=== PATIENT | male | born 1960 | race Caucasian/White ===

== ENCOUNTER 2019-03-29 10:44 | Emergency (ER) | payer BC ==
[2019-03-29] MEDS ORDERED: Bupivacaine 0.5% 10 ML SDV INJECT ONE (10:49)
[2019-03-29] MEDS ORDERED: Diphtheria,Pertussis(Acell),Tetanus Vaccine 0.5 ML Syringe IM ONE (11:11)
--- NOTE | 2019-03-29 11:46 | EDM.PDOC ---
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 Review of systems: As per history of present illness and below otherwise all systems reviewed and negative. Past medical history: As per history of present illness and as reviewed below otherwise noncontributory. Surgical history: As per history of present illness and as reviewed below otherwise noncontributory. Social history: No reported history of drug or alcohol abuse. Family history: As per history of present illness and as reviewed below otherwise noncontributory. Physical exam: General: Well developed, well nourished in NAD HEENT: Atraumatic, normocephalic, pupils reactive, negative for conjunctival pallor or scleral icterus, mucous membranes moist, throat clear, neck supple, nontender, trachea midline. Lungs: Clear to auscultation, breath sounds equal bilaterally, chest nontender. Heart: S1S2, regular, negative for clicks, rubs, or JVD. Abdomen: NABS, Soft, nondistended, nontender. Negative for masses or hepatosplenomegaly. Negative for costovertebral tenderness. Pelvis: Stable nontender. Genitourinary: Deferred. Rectal: Deferred. Extremities: 5 cm laceration to the thenar eminence left hand, negative for cords or calf pain. Neurovascular unremarkable. Neuro: Awake, alert, oriented. Cranial nerves II through XII unremarkable. Cerebellum unremarkable. Motor and sensory unremarkable throughout. Exam nonfocal. Skin:warm and dry Diagnostics: None Therapeutics: Tetanus ED Course: Stable Impression: Left hand laceration Prescriptions: None Plan: Take meds as directed, follow up with your primary care physician, return to ER if symptoms worsen or change. Definitive disposition and diagnosis as appropriate pending reevaluation and review of above. Left hand Pain Score (Numeric/FACES): 1 - Related Data Allergies Allergy/AdvReac Type Severity Reaction Status Date / Time No Known Allergies Allergy Verified 03/29/19 10:55 Home Meds: Home Meds Aspirin 81 mg PO DAILY 03/29/19 [History] Carvedilol [Coreg] 12.5 mg PO BID 03/29/19 [History] Hydrochlorothiazide [Microzide] 12.5 mg PO DAILY 03/29/19 [History] Omeprazole Magnesium [Prilosec Otc] 1 tab PO DAILY 03/29/19 [History] Pravastatin Sodium [Pravachol] 80 mg PO DAILY 03/29/19 [History] Ramipril [Altace] 10 mg PO DAILY 03/29/19 [History] Past Medical History Cardiovascular History: Reports: Bypass, Hypertension Other Cardiovascular History: Patient states he has heart disease Other Genitourinary History: Patient states he has "prostate issues." - Infectious Disease History Infectious Disease History: Reports: Chicken Pox Social & Family History - Family History Family Medical History: Noncontributory - Tobacco Use Smoking Status *Q: Never Smoker - Caffeine Use Caffeine Use: Reports: None - Recreational Drug Use Recreational Drug Use: No ED ROS GENERAL - Review of Systems Review Of Systems: See Below ED EXAM, SKIN/RASH Exam: See Below ED SKIN PROCEDURES - Laceration/Wound Repair Hand Appearance: Superficial, Subcutaneous Anesthetic Type: Local Local Anesthesia - Lidocaine (Xylocaine): 1% Plain Local Anesthesia - Bupivicaine (Marcaine): 0.5% Plain Local Anesthetic Volume: 3cc Skin Prep: Chlorhexidine (Hibiciens) Lac/Wound length In cm: 5 Drain Placement: No Sterile Dressing Applied: Nurse Tetanus Status Addressed: Yes Complications: No Course - Vital Signs Last Recorded V/S: Last Vital Signs Temp 98.1 F 03/29/19 11:01 Pulse 62 03/29/19 11:01 Resp 15 03/29/19 11:01 BP 118/82 03/29/19 11:01 Pulse Ox 98 03/29/19 11:01 - Orders/Labs/Meds Orders: Active Orders 24 hr Category Date Time Status Vaccines to be Administered [RC] PER UNIT ROUTINE Care 03/29/19 11:11 Active Meds: Medications Discontinued Medications Generic Name Dose Route Start Last Admin Trade Name Freq PRN Reason Stop Dose Admin Bupivacaine HCl 10 ml 03/29/19 10:49 Sensorcaine-Mpf 0.5% INJECT 03/29/19 10:50 ONETIME ONE Diphtheria/Tetanus/Acell Pertussis 0.5 ml 03/29/19 11:11 Adacel IM 03/29/19 11:12 .ONCE ONE Lidocaine HCl 5 ml 03/29/19 10:49 Xylocaine-Mpf 1% INJECT 03/29/19 10:50 ONETIME ONE Departure - Departure Time of Disposition: 11:44 Disposition: Home, Self-Care 01 Condition: Good Clinical Impression: Hand laceration Qualifiers: Encounter type: initial encounter Foreign body presence: without foreign body Laterality: left Qualified Code(s): S61.412A - Laceration without foreign body of left hand, initial encounter - Discharge Information *PRESCRIPTION DRUG MONITORING PROGRAM REVIEWED*: Not Applicable *COPY OF PRESCRIPTION DRUG MONITORING REPORT IN PATIENT KERRI: Not Applicable Referrals: PCP,Unknown [Primary Care Provider] - Additional Instructions: The following information is given to patients seen in the emergency department who are being discharged to home. This information is to outline your options for follow-up care. We provide all patients seen in our emergency department with a follow-up referral. The need for follow-up, as well as the timing and circumstances, are variable depending upon the specifics of your emergency department visit. If you don't have a primary care physician on staff, we will provide you with a referral. We always advise you to contact your personal physician following an emergency department visit to inform them of the circumstance of the visit and for follow-up with them and/or the need for any referrals to a consulting specialist. The emergency department will also refer you to a specialist when appropriate. This referral assures that you have the opportunity for follow-up care with a specialist. All of these measure are taken in an effort to provide you with optimal care, which includes your follow-up. Under all circumstances we always encourage you to contact your private physician who remains a resource for coordinating your care. When calling for follow-up care, please make the office aware that this follow-up is from your recent emergency room visit. If for any reason you are refused follow-up, please contact the [facility] Emergency Department at and asked to speak to the emergency department charge nurse. Take meds as directed, follow up with your primary care physician, return to ER if symptoms worsen or change. [facility] [address] [place] [id number] - My Orders Last 24 Hours: My Active Orders 03/29/19 11:11 Vaccines to be Administered [RC] PER UNIT ROUTINE - Assessment/Plan Last 24 Hours: My Active Orders 03/29/19 11:11 Vaccines to be Administered [RC] PER UNIT ROUTINE
== END 2019-03-29 12:14 | disposition home or self-care (01) ==
LOC: MW.ED 10:44
DX: S61.412A Laceration without foreign body of left hand, initial encounter (principal); I10 Essential (primary) hypertension; Z79.82 Long term (current) use of aspirin; Z79.899 Other long term (current) drug therapy; Z23 Encounter for immunization; W26.8XXA Contact with other sharp object(s), not elsewhere classified, initial encounter
CPT/HCPCS: 90471; 90715; 99282; J2001; J3490

== ENCOUNTER 2019-06-04 22:09 | Observation (INO) | payer BC ==
[2019-06-04] MEDS ORDERED: Sodium Chloride 0.9% 1,000 ML IV ONE (22:11)
[2019-06-04] MEDS ORDERED: Ondansetron 4 MG/2 ML SDV IVPUSH ONE (22:11)
--- NOTE | 2019-06-04 22:12 | EDM.PDOC ---
ED HPI GENERAL MEDICAL PROBLEM - General Chief Complaint: Abdominal Pain Stated Complaint: SEVERE ABDOMINAL PAIN Time Seen by Provider: 06/04/19 22:12 Source of Information: Reports: Patient - History of Present Illness INITIAL COMMENTS - FREE TEXT/NARRATIVE: HISTORY AND PHYSICAL: History of present illness: [Shunt presents with right lower quadrant pain for 12-24 hours increasing in severity] Review of systems: As per history of present illness and below otherwise all systems reviewed and negative. Past medical history: As per history of present illness and as reviewed below otherwise noncontributory. Surgical history: As per history of present illness and as reviewed below otherwise noncontributory. Social history: No reported history of drug or alcohol abuse. Family history: As per history of present illness and as reviewed below otherwise noncontributory. Physical exam: HEENT: Atraumatic, normocephalic, pupils reactive, negative for conjunctival pallor or scleral icterus, mucous membranes moist, throat clear, neck supple, nontender, trachea midline. Lungs: Clear to auscultation, breath sounds equal bilaterally, chest nontender. Heart: S1S2, regular, negative for clicks, rubs, or JVD. Abdomen: Soft, guarding with rebound right lower quadrant. Negative for masses or hepatosplenomegaly. Negative for costovertebral tenderness. Pelvis: Stable nontender. Genitourinary: Deferred. Rectal: Deferred. Extremities: Atraumatic, negative for cords or calf pain. Neurovascular unremarkable. Neuro: Awake, alert, oriented. Cranial nerves II through XII unremarkable. Cerebellum unremarkable. Motor and sensory unremarkable throughout. Exam nonfocal. Diagnostics: [EBC CMP UA troponin EKG CT abdomen pelvis with and without contrast ] Therapeutics: [Normal saline Zofran Morphine Rocephin ] Impression: [ acute appendicitis ] Definitive disposition and diagnosis as appropriate pending reevaluation and review of above. Abdomen Pain Score (Numeric/FACES): 5 - Related Data Allergies Allergy/AdvReac Type Severity Reaction Status Date / Time No Known Allergies Allergy Verified 06/04/19 22:17 Home Meds: Home Meds Aspirin 81 mg PO DAILY 03/29/19 [History] Hydrochlorothiazide [Microzide] 12.5 mg PO DAILY 03/29/19 [History] Ramipril [Altace] 10 mg PO DAILY 03/29/19 [History] carvediloL [Coreg] 12.5 mg PO BID 03/29/19 [History] Finasteride 1 mg PO DAILY 06/04/19 [History] Omeprazole Magnesium [Prilosec] 10 mg PO DAILY 06/04/19 [History] Pravastatin [Pravachol] 80 mg PO DAILY 06/04/19 [History] Past Medical History Cardiovascular History: Reports: Bypass, Hypertension Other Cardiovascular History: Patient states he has heart disease Other Genitourinary History: Patient states he has "prostate issues." - Infectious Disease History Infectious Disease History: Reports: Chicken Pox Social & Family History - Family History Family Medical History: Noncontributory - Caffeine Use Caffeine Use: Reports: None ED ROS GENERAL - Review of Systems Review Of Systems: See Below ED EXAM, GENERAL - Physical Exam Exam: See Below Course - Vital Signs Last Recorded V/S: Last Vital Signs Temp 97.8 F 06/05/19 00:03 Pulse 70 06/05/19 00:03 Resp 18 06/05/19 00:03 BP 109/61 06/05/19 00:03 Pulse Ox 95 06/05/19 00:03 - Orders/Labs/Meds Orders: Active Orders 24 hr Category Date Time Status EKG Documentation Completion [RC] STAT Care 06/04/19 22:12 Active Labs: Laboratory Tests 06/04/19 06/04/19 06/04/19 Range/Units 22:20 22:20 22:25 WBC 17.15 H (4.0-11.0) K/uL RBC 4.67 (4.50-5.90) M/uL Hgb 15.5 (13.0-17.0) g/dL Hct 44.3 (38.0-50.0) % MCV 94.9 (80.0-98.0) fL MCH 33.2 H (27.0-32.0) pg MCHC 35.0 (31.0-37.0) g/dL RDW Std Deviation 45.1 (28.0-62.0) fl RDW Coeff of Ivette 13 (11.0-15.0) % Plt Count 158 (150-400) K/uL MPV 10.00 (7.40-12.00) fL Neut % (Auto) 78.0 (48.0-80.0) % Lymph % (Auto) 9.4 L (16.0-40.0) % [place] % (Auto) 11.7 (0.0-15.0) % Eos % (Auto) 0.8 (0.0-7.0) % Baso % (Auto) 0.1 (0.0-1.5) % Neut # (Auto) 13.4 H (1.4-5.7) K/uL Lymph # (Auto) 1.6 (0.6-2.4) K/uL [place] # (Auto) 2.0 H (0.0-0.8) K/uL Eos # (Auto) 0.1 (0.0-0.7) K/uL Baso # (Auto) 0.0 (0.0-0.1) K/uL Nucleated RBC % 0.0 /100WBC Nucleated RBCs # 0 K/uL Sodium 137 (136-148) mmol/L Potassium 3.5 (3.5-5.1) mmol/L Chloride 101 (98-107) mmol/L Carbon Dioxide 28.0 (21.0-32.0) mmol/L BUN 9 (7.0-18.0) mg/dL Creatinine 1.1 (0.8-1.3) mg/dL Est Cr Clr Drug Dosing 66.77 mL/min Estimated GFR (MDRD) > 60.0 ml/min Glucose 116 H (74-106) mg/dL Calcium 8.8 (8.5-10.1) mg/dL Total Bilirubin 1.4 H (0.2-1.0) mg/dL AST 20 (15-37) IU/L ALT 42 (14-63) IU/L Alkaline Phosphatase 63 (46-116) U/L Troponin I < 0.050 (0.000-0.056) ng/mL Total Protein 7.5 (6.4-8.2) g/dL Albumin 4.0 (3.4-5.0) g/dL Globulin 3.5 (2.6-4.0) g/dL Albumin/Globulin Ratio 1.1 (0.9-1.6) Lipase 101 (73-393) U/L Urine Color YELLOW Urine Appearance CLEAR Urine pH 7.0 (5.0-8.0) Ur Specific [place] 1.010 (1.001-1.035) Urine Protein NEGATIVE (NEGATIVE) mg/dL Urine Glucose (UA) NEGATIVE (NEGATIVE) mg/dL Urine Ketones NEGATIVE (NEGATIVE) mg/dL Urine Occult Blood TRACE-INTACT H (NEGATIVE) Urine Nitrite NEGATIVE (NEGATIVE) Urine Bilirubin NEGATIVE (NEGATIVE) Urine Urobilinogen 1.0 (<2.0) EU/dL Ur Leukocyte Esterase NEGATIVE (NEGATIVE) Urine RBC 0-2 (0-2/HPF) Urine WBC 0-1 (0-5/HPF) Ur Epithelial Cells RARE (NONE-FEW) Urine Bacteria RARE (NEGATIVE) Meds: Medications Discontinued Medications Generic Name Dose Route Start Last Admin Trade Name Freq PRN Reason Stop Dose Admin Sodium Chloride 1,000 mls @ 999 mls/hr 06/04/19 22:11 06/04/19 22:31 Normal Saline IV 06/04/19 23:11 999 mls/hr STAT ONE Administration Iopamidol 100 ml 06/04/19 23:16 06/04/19 23:17 Isovue Multipack-370 (76%) IVPUSH 06/04/19 23:17 100 ml ONETIME STA Administration Morphine Sulfate 2 mg 06/04/19 22:41 06/04/19 22:49 Morphine IVPUSH 06/04/19 22:42 2 mg ONETIME ONE Administration Ondansetron HCl 8 mg 06/04/19 22:11 06/04/19 22:31 Zofran IVPUSH 06/04/19 22:12 8 mg ONETIME ONE Administration Departure - Departure Time of Disposition: 00:11 Disposition: Refer to Observation Condition: Poor Clinical Impression: Appendicitis - Discharge Information Forms: ED Department Discharge - My Orders Last 24 Hours: My Active Orders 06/04/19 22:12 EKG Documentation Completion [RC] STAT - Assessment/Plan Last 24 Hours: My Active Orders 06/04/19 22:12 EKG Documentation Completion [RC] STAT
[2019-06-04] MEDS ORDERED: Morphine 2 MG/ML Syringe IVPUSH ONE (22:41)
[2019-06-04 22:56] LABS: BLOOD UREA NITROGEN,BUN 9 mg/dL (7.0-18.0); CHLORIDE,CL 101 mmol/L (98-107); GLUCOSE RANDOM 116 mg/dL (74-106); LIPASE 101 U/L (73-393); POTASSIUM,K 3.5 mmol/L (3.5-5.1); SODIUM,NA 137 mmol/L (136-148)
[2019-06-04] MEDS ORDERED: Iopamidol 755 MG/ML 500 ML Multipack Bottle IVPUSH STA (23:16)
--- NOTE | 2019-06-04 23:52 | CT ---
INDICATION: Right lower quadrant pain TECHNIQUE: CT abdomen and pelvis acquired with IV contrast. 100 cc Isovue 370 COMPARISON: None FINDINGS: Lower chest: Unremarkable. Liver: Unremarkable. Spleen: Unremarkable. Pancreas: Unremarkable. Gallbladder and bile ducts: Unremarkable. Kidneys: Unremarkable. Adrenal glands: Unremarkable. GI tract: Unremarkable. The appendix is dilated up to 1.7 centimeters, thick-walled and contains multiple appendicoliths. Significant adjacent inflammatory stranding. Findings consistent with acute appendicitis. Vascular structures: Unremarkable. Lymph nodes: Unremarkable. Miscellaneous: Unremarkable. No free air or significant free fluid. Pelvic Organs: Unremarkable. Bones: Unremarkable for age. IMPRESSION: Dilated and thickened appendix with adjacent inflammatory stranding and multiple appendicoliths consistent with acute appendicitis. Dictated by Law Patterson MD @ 06/04/2019 11:51:12 PM Please note that all CT scans at this facility use dose modulation, iterative reconstruction, and/or weight-based dosing when appropriate to reduce radiation dose to as low as reasonably achievable. Dictated by: Law Patterson MD @ 06/04/2019 23:51:18 (Electronically Signed)
[2019-06-05] MEDS ORDERED: cefTRIAXone 1 GM in Premix Bag 1 BAG IV ONE (00:12)
[2019-06-05] MEDS ORDERED: Lactated Ringers 1,000 ML IV SCH (01:00)
--- NOTE | 2019-06-05 01:22 | PCM.SN ---
- Free Text/Narrative Note: pt seen, chart reviewed, acute appendicitis of pain >48 hrs, and size 17 mm; proceed to surgery; rb dw pt re bleeding/infection/damage to nearby organs/po course/possible drain placement; pt concurred and proceed.; admission h/p [id number]
[2019-06-05] MEDS ORDERED: Rocuronium 100 MG/10 ML Syringe ONE (03:04)
[2019-06-05] MEDS ORDERED: Midazolam 1 MG/ML 2 ML SDV ONE (03:04)
[2019-06-05] MEDS ORDERED: Etomidate 2 MG/ML 20 ML SDV IVPUSH ONE (03:04)
[2019-06-05] MEDS ORDERED: Ondansetron 4 MG/2 ML SDV ONE (03:04)
[2019-06-05] MEDS ORDERED: fentaNYL 250 MCG/5 ML SDV ONE (03:04)
[2019-06-05] MEDS ORDERED: Lidocaine 2% 5 ML SDV ONE (03:04)
[2019-06-05] MEDS ORDERED: Bupivacaine 25%/EPINEPHrine/PF 30 ML ONE (03:30)
--- NOTE | 2019-06-05 03:59 | CONS ---
DATE OF CONSULTATION: 06/05/2019 DATE OF : 1960 PRIMARY CARE PHYSICIAN: CARRIE WOMACK MD Consult from Dr. Gray in the emergency room. REASON FOR CONSULTATION: Acute appendicitis. HISTORY OF PRESENT ILLNESS: The patient is 58 years old gentleman complaining of a 48-hour history of acute onset of right lower quadrant pain. Pain initially from the periumbilical, now migrated to the right lower quadrant and pain is enough to drive him to the emergency room where he got a CAT scan that shows a dilated appendix about 17 mm, no perforation yet. Thickened wall, stranding of fat consistent with acute appendicitis. Surgery was called. The patient remarked that he had something to eat or drink around 6 hours ago. ALLERGIES: Please refer to nursing for details. MEDICATION: Please refer to nursing for details. 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 The patient also recently seen Cardiology, got a workup. Stress test was negative and perfusion test shows ejection fraction of 35% with some area of constant hypokinetic consistent with old infarct. SURGERIES: CABG in the past and virgin abdomen. SOCIAL HISTORY: The patient denied tobacco and alcohol abuse. FAMILY HISTORY: Noncontributory. PHYSICAL EXAMINATION: GENERAL: A very pleasant gentleman, smiled to the doctor, in no acute distress. HEENT: Normocephalic and atraumatic. Sclerae anicteric. LUNGS: Clear to auscultation. HEART: Regular rate and rhythm. ABDOMEN: Soft, nondistended. No pulsating tender midline abdominal structure. Exquisite tenderness at McBurney point. No rebound tenderness. No Rovsing sign. LABORATORY DATA: White count is 17,000. CAT scan as alluded above. IMPRESSION: Acute appendicitis, probably will rupture at any time as the patient has been hurting for 48 hours. Acute appendicitis usually rupture in 72 hours and has been told and the appendix is dilated to 17 mm. At the time of calling for surgery, unfortunate is ongoing. Will be on line for the to finish . We will start the IV fluid at 125, lactated Ringer and the patient would have a dose of Rocephin and will get another dose of Mefoxin if the surgery is going to be 2 to 3 hours later. All the plan has been discussed with the patient, patient concurred to proceed as planned. As always, thank you for the kind referral. LIANS / MODL /[id number] REYES
--- NOTE | 2019-06-05 04:12 | CR ---
HISTORY: Possible CHF. COMPARISON: None available. FINDINGS: A portable erect AP view of the chest was obtained at STUDY TIME hours. The lungs are clear. No focal or diffuse infiltrates are present. The heart is top normal in size. There are sternal wires from median sternotomy. There is fullness of the retrocardiac region suggesting a moderate sized hiatal hernia. The mediastinum is otherwise normal in appearance. The osseous structures are normal in appearance for the patient`s age. IMPRESSION: No active disease seen in the chest. Probable moderate-sized hiatal hernia. Dictated by Corey Torres MD @ Jun 05 2019 4:09AM Signed by Dr. Corey Torres @ Jun 05 2019 4:10AM
[2019-06-05] MEDS ORDERED: Sodium Chloride 0.9% 20 ML ONE (04:23)
[2019-06-05] MEDS ORDERED: cefOXitin 1 GM Vial ONE (04:23)
[2019-06-05] MEDS ORDERED: ePHEDrine 50 MG/ML SDV ONE (04:27)
[2019-06-05] MEDS ORDERED: HYDROmorphone 2 MG/ML Syringe ONE (05:31)
[2019-06-05] MEDS: Ondansetron 4 MG/2 ML SDV IVPUSH PRN ×2 (05:45→15:57)
--- NOTE | 2019-06-05 05:49 | PCM.OPNOTE ---
- General Post-Op/Procedure Note Date of Surgery/Procedure: 06/05/19 Operative Procedure(s): lap appy Findings: appendicitis suppurativa; gross perf not observed, surgicell/drain inserted; [id number] Pre Op Diagnosis: acute appendicitis Post-Op Diagnosis: Same Anesthesia Technique: General ET Tube Primary Surgeon: Panda Guerra Pathology: sent Surgical Drain/Tube Type: Alex Oliva Flat Drain Complications: None Condition: Fair Free Text/Narrative:: Intake & Output 06/04/19 06/04/19 06/05/19 14:59 22:59 06:59 Intake Total 385 Output Total 0 Balance 385
[2019-06-05] MEDS ORDERED: Naloxone 0.4 MG/ML Syringe IVPUSH PRN (05:51)
[2019-06-05] MEDS ORDERED: Albuterol 0.083% 2.5 MG/3 ML Neb Soln NEB PRN (05:51)
[2019-06-05] MEDS ORDERED: Atropine 0.1 MG/ML 10 ML Syringe IVPUSH PRN ×2 (05:51)
[2019-06-05] MEDS ORDERED: EPINEPHrine 1:10,000 1 MG/10 ML Syringe IVPUSH PRN (05:51)
[2019-06-05] MEDS ORDERED: 50% Dextrose in Water 50 ML Syringe IVPUSH PRN (05:51)
[2019-06-05] MEDS ORDERED: Morphine 2 MG/ML Syringe IVPUSH PRN (05:51)
[2019-06-05] MEDS ORDERED: fentaNYL 100 MCG/2 ML SDV IVPUSH PRN (05:51)
[2019-06-05] MEDS ORDERED: Acetaminophen/oxyCODONE 325-5 MG Tab PO PRN (05:54)
[2019-06-05] MEDS ORDERED: Morphine 4 MG/ML Syringe IVPUSH PRN (05:59)
--- NOTE | 2019-06-05 06:00 | PCM.PREANE ---
Preanesthetic Assessment - Anesthesia/Transfusion/Family Hx Anesthesia History: Prior Anesthesia Without Reaction Family History of Anesthesia Reaction: No Transfusion History: No Prior Transfusion(s) - Review of Systems General: Weakness Pulmonary: No Symptoms Cardiovascular: No Symptoms Gastrointestinal: Nausea Neurological: No Symptoms Other: Reports: None - Physical Assessment NPO Status Date: 06/04/19 NPO Status Time: 22:00 Vital Signs: Last Vital Signs Temp 98.3 F 06/05/19 03:50 Pulse 67 06/05/19 03:50 Resp 17 06/05/19 03:50 BP 119/74 06/05/19 03:50 Pulse Ox 95 06/05/19 03:50 Height: 5 ft 7 in Weight: 80 kg ASA Class: 3E Mental Status: Alert & Oriented x3 Airway Class: Mallampati = 2 Dentition: Reports: Normal Dentition Thyro-Mental Finger Breadths: 2 Mouth Opening Finger Breadths: 3 ROM/Head Extension: Full Lungs: Clear to Auscultation, Normal Respiratory Effort Cardiovascular: Regular Rate, Regular Rhythm, Murmurs (Systolic) - Lab Values: Laboratory Last Values WBC 17.15 K/uL (4.0-11.0) H 06/04/19 22:20 RBC 4.67 M/uL (4.50-5.90) 06/04/19 22:20 Hgb 15.5 g/dL (13.0-17.0) 06/04/19 22:20 Hct 44.3 % (38.0-50.0) 06/04/19 22:20 MCV 94.9 fL (80.0-98.0) 06/04/19 22:20 MCH 33.2 pg (27.0-32.0) H 06/04/19 22:20 MCHC 35.0 g/dL (31.0-37.0) 06/04/19 22:20 RDW Std Deviation 45.1 fl (28.0-62.0) 06/04/19 22:20 RDW Coeff of Ivette 13 % (11.0-15.0) 06/04/19 22:20 Plt Count 158 K/uL (150-400) 06/04/19 22:20 MPV 10.00 fL (7.40-12.00) 06/04/19 22:20 Neut % (Auto) 78.0 % (48.0-80.0) 06/04/19 22:20 Lymph % (Auto) 9.4 % (16.0-40.0) L 06/04/19 22:20 [place] % (Auto) 11.7 % (0.0-15.0) 06/04/19 22:20 Eos % (Auto) 0.8 % (0.0-7.0) 06/04/19 22:20 Baso % (Auto) 0.1 % (0.0-1.5) 06/04/19 22:20 Neut # (Auto) 13.4 K/uL (1.4-5.7) H 06/04/19 22:20 Lymph # (Auto) 1.6 K/uL (0.6-2.4) 06/04/19 22:20 [place] # (Auto) 2.0 K/uL (0.0-0.8) H 06/04/19 22:20 Eos # (Auto) 0.1 K/uL (0.0-0.7) 06/04/19 22:20 Baso # (Auto) 0.0 K/uL (0.0-0.1) 06/04/19 22:20 Nucleated RBC % 0.0 /100WBC 06/04/19 22:20 Nucleated RBCs # 0 K/uL 06/04/19 22:20 Sodium 137 mmol/L (136-148) 06/04/19 22:20 Potassium 3.5 mmol/L (3.5-5.1) 06/04/19 22:20 Chloride 101 mmol/L (98-107) 06/04/19 22:20 Carbon Dioxide 28.0 mmol/L (21.0-32.0) 06/04/19 22:20 BUN 9 mg/dL (7.0-18.0) 06/04/19 22:20 Creatinine 1.1 mg/dL (0.8-1.3) 06/04/19 22:20 Est Cr Clr Drug Dosing 66.77 mL/min 06/04/19 22:20 Estimated GFR (MDRD) > 60.0 ml/min 06/04/19 22:20 Glucose 116 mg/dL (74-106) H 06/04/19 22:20 Calcium 8.8 mg/dL (8.5-10.1) 06/04/19 22:20 Total Bilirubin 1.4 mg/dL (0.2-1.0) H 06/04/19 22:20 AST 20 IU/L (15-37) 06/04/19 22:20 ALT 42 IU/L (14-63) 06/04/19 22:20 Alkaline Phosphatase 63 U/L (46-116) 06/04/19 22:20 Troponin I < 0.050 ng/mL (0.000-0.056) 06/04/19 22:20 B-Natriuretic Peptide 59 PG/ML (<100) 06/04/19 22:20 Total Protein 7.5 g/dL (6.4-8.2) 06/04/19 22:20 Albumin 4.0 g/dL (3.4-5.0) 06/04/19 22:20 Globulin 3.5 g/dL (2.6-4.0) 06/04/19 22:20 Albumin/Globulin Ratio 1.1 (0.9-1.6) 06/04/19 22:20 Lipase 101 U/L (73-393) 06/04/19 22:20 Urine Color YELLOW 06/04/19 22:25 Urine Appearance CLEAR 06/04/19 22:25 Urine pH 7.0 (5.0-8.0) 06/04/19 22:25 Ur Specific [place] 1.010 (1.001-1.035) 06/04/19 22:25 Urine Protein NEGATIVE mg/dL (NEGATIVE) 06/04/19 22:25 Urine Glucose (UA) NEGATIVE mg/dL (NEGATIVE) 06/04/19 22:25 Urine Ketones NEGATIVE mg/dL (NEGATIVE) 06/04/19 22:25 Urine Occult Blood TRACE-INTACT (NEGATIVE) H 06/04/19 22:25 Urine Nitrite NEGATIVE (NEGATIVE) 06/04/19 22:25 Urine Bilirubin NEGATIVE (NEGATIVE) 06/04/19 22:25 Urine Urobilinogen 1.0 EU/dL (<2.0) 06/04/19 22:25 Ur Leukocyte Esterase NEGATIVE (NEGATIVE) 06/04/19 22:25 Urine RBC 0-2 (0-2/HPF) 06/04/19 22:25 Urine WBC 0-1 (0-5/HPF) 06/04/19 22:25 Ur Epithelial Cells RARE (NONE-FEW) 06/04/19 22:25 Urine Bacteria RARE (NEGATIVE) 06/04/19 22:25 - Allergies Allergies/Adverse Reactions: Allergies Allergy/AdvReac Type Severity Reaction Status Date / Time No Known Allergies Allergy Verified 06/05/19 03:12 - Anesthesia Plan Free Text/Narrative:: 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 States his functional level is quiet high without limitation. Previous visits to the clinic this year show fatigue and lack of energy attributed to his CHF. Stress test earlier this year was negative for acute ischemia. Spoke with Dr Guerra and recommended hospitalist consult post-op medical management. - Acknowledgements Anesthesia Type Planned: General Anesthesia Pt an Appropriate Candidate for the Planned Anesthesia: Yes Alternatives and Risks of Anesthesia Discussed w Pt/Guardian: Yes Pt/Guardian Understands and Agrees with Anesthesia Plan: Yes PreAnesthesia Questionnaire HEENT History: Reports: None Cardiovascular History: Reports: Bypass, Cardiomyopathy, Heart Failure (EF 35-40 %, apex,base,inferior fan severe hypokinesia/akinesia 11/30 BNP-59 06/02), Hypertension Other Cardiovascular History: Patient states he has heart disease Respiratory History: Reports: None Gastrointestinal History: Reports: GERD, Hiatal Hernia (Confirmed on CXR 06/02) Genitourinary History: Reports: None Other Genitourinary History: Patient states he has "prostate issues." Musculoskeletal History: Reports: None Neurological History: Reports: None Psychiatric History: Reports: None Endocrine/Metabolic History: Reports: None Hematologic History: Reports: None Immunologic History: Reports: None Oncologic (Cancer) History: Reports: None Dermatologic History: Reports: None - Infectious Disease History Infectious Disease History: Reports: Chicken Pox - Past Surgical History Head Surgeries/Procedures: Reports: None Cardiovascular Surgical History: Reports: Coronary Artery Bypass (x5 2008) Other Cardiovascular Surgeries/Procedures: Angio 2008 without stent placement - SUBSTANCE USE Smoking Status *Q: Former Smoker Tobacco Use Within Last Twelve Months: Cigarettes Recreational Drug Use History: No - HOME MEDS Home Medications: Home Meds Aspirin 81 mg PO DAILY 03/29/19 [History] Hydrochlorothiazide [Microzide] 12.5 mg PO DAILY 03/29/19 [History] Ramipril [Altace] 10 mg PO DAILY 03/29/19 [History] carvediloL [Coreg] 12.5 mg PO BID 03/29/19 [History] Finasteride 5 mg PO DAILY 06/04/19 [History] Omeprazole Magnesium [Prilosec] 10 mg PO DAILY 06/04/19 [History] Pravastatin [Pravachol] 80 mg PO DAILY 06/04/19 [History] Multivitamin [One Daily Multivitamin] 1 tab PO DAILY 06/05/19 [History] Ubidecarenone [Ultra Coq10] 06/05/19 [History] - CURRENT (IN HOUSE) MEDS Current Meds: Current Medications Albuterol (Proventil Neb Soln) 2.5 mg NEB ONETIME PRN PRN Reason: Wheezing Atropine Sulfate (Atropine 0.1 Mg/Ml) 0.5 mg IVPUSH ASDIRECTED PRN PRN Reason: Hypo-perfusion Atropine Sulfate (Atropine 0.1 Mg/Ml) 1 mg IVPUSH ASDIRECTED PRN PRN Reason: Hypo-Perfusion Dextrose/Water (Dextrose 50% In Water) 50 ml IVPUSH ASDIRECTED PRN PRN Reason: Hypoglycemia Epinephrine HCl (Epinephrine 1:10,000) 1 mg IVPUSH ASDIRECTED PRN PRN Reason: ACLS Guidelines Fentanyl (Sublimaze) 50 - 100 mcg IVPUSH Q5M PRN PRN Reason: Pain Lactated Ringer's (Ringers, Lactated) 1,000 mls @ 125 mls/hr IV ASDIRECTED YIFAN Last Admin: 06/05/19 00:52 Dose: 125 mls/hr Naloxone HCl (Narcan) 0.1 mg IVPUSH ASDIRECTED PRN PRN Reason: Respiratory Depression Discontinued Medications Cefoxitin Sodium (Mefoxin) Confirm Administered Dose 1 gm .ROUTE .STK-MED ONE Stop: 06/05/19 04:24 Ephedrine Sulfate (Ephedrine Sulfate) Confirm Administered Dose 50 mg .ROUTE .STK-MED ONE Stop: 06/05/19 04:28 Etomidate (Amidate) Confirm Administered Dose 40 mg IVPUSH .STK-MED ONE Stop: 06/05/19 03:05 Fentanyl (Sublimaze) Confirm Administered Dose 250 mcg .ROUTE .STK-MED ONE Stop: 06/05/19 03:05 Hydromorphone HCl (Dilaudid) Confirm Administered Dose 2 mg .ROUTE .STK-MED ONE Stop: 06/05/19 05:32 Sodium Chloride (Normal Saline) 1,000 mls @ 999 mls/hr IV STAT ONE Stop: 06/04/19 23:11 Last Admin: 06/04/19 22:31 Dose: 999 mls/hr Ceftriaxone Sodium/Dextrose 1 (gm/ Premix) 50 mls @ 100 mls/hr IV ONETIME ONE Stop: 06/05/19 00:41 Last Admin: 06/05/19 00:22 Dose: 100 mls/hr Bupivacaine HCl/Epinephrine Bitart (Sensorc Mpf 0.25%-Epi 1:[id number]) Confirm Administered Dose 30 mls @ as directed .ROUTE .STK-MED ONE Stop: 06/05/19 03:31 Sodium Chloride (Normal Saline) Confirm Administered Dose 20 mls @ as directed .ROUTE .STK-MED ONE Stop: 06/05/19 04:24 Iopamidol (Isovue Multipack-370 (76%)) 100 ml IVPUSH ONETIME STA Stop: 06/04/19 23:17 Last Admin: 06/04/19 23:17 Dose: 100 ml Lidocaine (Xylocaine-Mpf 2%) Confirm Administered Dose 5 ml .ROUTE .STK-MED ONE Stop: 06/05/19 03:05 Midazolam HCl (Versed 1 Mg/Ml) Confirm Administered Dose 2 mg .ROUTE .STK-MED ONE Stop: 06/05/19 03:05 Morphine Sulfate (Morphine) 2 mg IVPUSH ONETIME ONE Stop: 06/04/19 22:42 Last Admin: 06/04/19 22:49 Dose: 2 mg Ondansetron HCl (Zofran) 8 mg IVPUSH ONETIME ONE Stop: 06/04/19 22:12 Last Admin: 06/04/19 22:31 Dose: 8 mg Ondansetron HCl (Zofran) Confirm Administered Dose 4 mg .ROUTE .STK-MED ONE Stop: 06/05/19 03:05 Rocuronium [place] (Zemuron) Confirm Administered Dose 100 mg .ROUTE .STK-MED ONE Stop: 06/05/19 03:05 Succinylcholine Chloride (Succinylcholine Chloride) Confirm Administered Dose 200 mg .ROUTE .STK-MED ONE Stop: 06/05/19 03:05
[2019-06-05] MEDS: Lactated Ringers 1,000 ML IV SCH ×2 (06:51→11:41)
--- NOTE | 2019-06-05 07:00 | PCM.POSTAN ---
POST ANESTHESIA ASSESSMENT - MENTAL STATUS Mental Status: Alert, Oriented - VITAL SIGNS Vital Signs: Last Vital Signs Temp 35.4 C 06/05/19 06:40 Pulse 64 06/05/19 06:55 Resp 16 06/05/19 06:55 BP 156/80 H 06/05/19 06:55 Pulse Ox 95 06/05/19 06:55 - RESPIRATORY Respiratory Status: Respiratory Rate WNL, Airway Patent, O2 Saturation Stable - CARDIOVASCULAR CV Status: Pulse Rate WNL, Blood Pressure Stable - GASTROINTESTINAL GI Status: No Symptoms - PAIN Pain Score: 0 - POST OP HYDRATION Hydration Status: Adequate & Stable - OBSERVATIONS Free Text/Narrative:: No anesthesia problems
--- NOTE | 2019-06-05 08:03 | PCM48HPAN ---
Post Anesthesia Note - EVALUATION WITHIN 48HRS OF ANESTHETIC Vital Signs in Normal Range: Yes Patient Participated in Evaluation: Yes Respiratory Function Stable: Yes Airway Patent: Yes Cardiovascular Function Stable: Yes Hydration Status Stable: Yes Pain Control Satisfactory: Yes (11/21 which he states is better than preop) Nausea and Vomiting Control Satisfactory: Yes Mental Status Recovered: Yes Vital Signs: Last Vital Signs Temp 35.4 C 06/05/19 06:40 Pulse 64 06/05/19 06:55 Resp 16 06/05/19 06:55 BP 156/80 H 06/05/19 06:55 Pulse Ox 95 06/05/19 06:55
--- NOTE | 2019-06-05 10:18 | OR ---
SURGEON: Panda Guerra MD DATE OF PROCEDURE: 06/05/2019 PREOPERATIVE DIAGNOSIS: Acute appendicitis. POSTOPERATIVE DIAGNOSIS: Acute appendicitis. PROCEDURE PERFORMED: Laparoscopic appendectomy. PRIMARY SURGEON: Panda Guerra MD. COMPLICATIONS: None. FINDINGS: Appendix is dilated to 17 mm, most of the dilatation is proximally. Involved the proximal one-half of the appendix and the appendix itself is dilated and not much exudate. Gross perforation is not observed. Peritoneal fluid is clear. Although the appendix may have some inflammation on the surface, the appendix maybe called mild suppurative appendicitis, not otherwise suppurative. As a result, a TRICIA drain was put, and the TRICIA drain should stay at least 3 days after oral diet. The patient has significant cardiac history. Consult hospitalists for med management postoperatively. DESCRIPTION OF PROCEDURE: The patient was taken to the operating room and placed in the supine position. Following induction of general endotracheal anesthesia, the patient's abdomen was prepped and draped in the sterile fashion. A time-out has been called. The patient was identified. The procedure was identified. The antibiotics were identified. The procedure then proceeded. The abdomen was prepped and draped in a standard fashion. After assessment of appropriate landmarks, a 12 millimeter trocar was inserted supraumbilically using Optiview and pneumoperitoneum was then achieved. This was followed with placement of 5 millimeter port in the right upper quadrant and another 5 millimeter port infraumbilically. The camera was inserted supraumbilical site and two laparoscopic Corina retractors were then inserted through the other two sites. Following the cecum, the appendix was located. The appendix was then lifted up, and using a GI stapler the appendix was amputated at the base. And using the GI stapler, the mesoappendix was then amputated. The appendix was retrieved by an endoscopic bag and sent for pathologist. This was then followed by re-insertion of the camera to examine the staple line, and hemostasis. The trocars were then removed. The umbilical site was closed with 2-0 Vicryl deep stitch and 4-0 Vicryl and Dermabond; the other 2 5 mm port sites were closed with 4-0 Vicryl and Dermabond. The patient was then awakened, extubated, and transferred to the recovery room in hemodynamically stable condition. Prior to closing, sponge count and instrument count was correct. Intraoperative findings as dictated above. A piece of Surgicel was inserted for hemostasis and the trocar site was closed with 2-0 Vicryl on the umbilical site and the other two sites and the skin approximated by use of skin staple followed with appropriate dressing and a flat 7 TRICIA drain was inserted on the lower part, anchored to the skin with [address] Guerra was present throughout the whole procedure. As always, thank you for the kind referral. MARY DAILEY /[id number]
[2019-06-05] MEDS ORDERED: Acetaminophen/oxyCODONE 325-7.5 MG Tab PO PRN (10:22)
--- NOTE | 2019-06-05 12:32 | PCM.SN ---
- Free Text/Narrative Note: pod#0 lap appendectomy, hemodynamically stable, admitted to telemetry for cardvasc risks. Denied chest pain/SOB, on clear liquid diet; will keep in telemetry for now; consult hospitalist for med management because of sig. card hx. TRICIA stays till Saturday; I will be out of town after Saturday, my oncall partner will dc drain next week. pt aware of the situation.
--- NOTE | 2019-06-05 13:11 | PCM.CONS ---
H&P History of Present Illness - General Date of Service: 06/05/19 Admit Problem/Dx: Admission Diagnosis/Problem Admission Diagnosis/Problem Appendicitis - History of Present Illness Initial Comments - Free Text/Narative: 58 yo male who is being admitted following an appendectomy for further monitoring due to his history of coronary heart disease. He had an IL 10 years ago and has had a CABG. He reports this year he had a negative stress test. His last Echocardiogram in November reported an EF of 40-45% with apical thinning and hypokenesis. He reports getting chest pain about once a month for which he takes an extra aspirin for. Abdomen Pain Score (Numeric/FACES): 5 - Related Data Allergies/Adverse Reactions: Allergies Allergy/AdvReac Type Severity Reaction Status Date / Time No Known Allergies Allergy Verified 06/05/19 03:12 Home Medications: Home Meds Aspirin 81 mg PO DAILY 03/29/19 [History] Hydrochlorothiazide [Microzide] 12.5 mg PO DAILY 03/29/19 [History] Ramipril [Altace] 10 mg PO DAILY 03/29/19 [History] carvediloL [Coreg] 12.5 mg PO BID 03/29/19 [History] Finasteride 5 mg PO DAILY 06/04/19 [History] Pravastatin [Pravachol] 80 mg PO DAILY 06/04/19 [History] Multivitamin [One Daily Multivitamin] 1 tab PO DAILY 06/05/19 [History] Omeprazole Magnesium [Prilosec Otc] 20 mg PO DAILY 06/05/19 [History] Ubidecarenone [Ultra Coq10] 06/05/19 [History] Past Medical History HEENT History: Reports: None Cardiovascular History: Reports: Bypass, Cardiomyopathy, Heart Failure (EF 35-40 %, apex,base,inferior fan severe hypokinesia/akinesia 11/30 BNP-59 06/02), Hypertension Other Cardiovascular History: Patient states he has heart disease Respiratory History: Reports: None Gastrointestinal History: Reports: GERD, Hiatal Hernia (Confirmed on CXR 06/02) Genitourinary History: Reports: None Other Genitourinary History: Patient states he has "prostate issues." Musculoskeletal History: Reports: None Neurological History: Reports: None Psychiatric History: Reports: None Endocrine/Metabolic History: Reports: None Insulin Pump Model and Independent Distributor: None Hematologic History: Reports: None Immunologic History: Reports: None Oncologic (Cancer) History: Reports: None Dermatologic History: Reports: None - Infectious Disease History Infectious Disease History: Reports: Chicken Pox - Past Surgical History Head Surgeries/Procedures: Reports: None Cardiovascular Surgical History: Reports: Coronary Artery Bypass (x5 2009) Other Cardiovascular Surgeries/Procedures: Angio 2009 without stent placement Social & Family History - Family History Family Medical History: Noncontributory - Tobacco Use Smoking Status *Q: Former Smoker Used Tobacco, but Quit: Yes Month/Year Tobacco Last Used: 2008 - Caffeine Use Caffeine Use: Reports: Soda - Recreational Drug Use Recreational Drug Use: No H&P Review of Systems - Review of Systems: Review Of Systems: Comprehensive ROS is negative, except as noted in HPI. Exam - Exam Exam: See Below - Vital Signs Vital Signs: Last Vital Signs Temp 36.6 C 06/05/19 10:24 Pulse 73 06/05/19 10:24 Resp 18 06/05/19 10:24 BP 134/80 06/05/19 10:24 Pulse Ox 93 L 06/05/19 10:24 Weight: 80 kg - Exam General: Alert, Oriented HEENT: Mucosa Moist & [place] Lungs: Clear to Auscultation, Normal Respiratory Effort Cardiovascular: Regular Rate, Regular Rhythm Extremities: Non-Tender, No Pedal Edema Skin: Warm, Dry, Intact - Patient Data Lab Results Last 24 hrs: Laboratory Results - last 24 hr 06/04/19 06/04/19 06/04/19 Range/Units 22:20 22:20 22:20 WBC 17.15 H (4.0-11.0) K/uL RBC 4.67 (4.50-5.90) M/uL Hgb 15.5 (13.0-17.0) g/dL Hct 44.3 (38.0-50.0) % MCV 94.9 (80.0-98.0) fL MCH 33.2 H (27.0-32.0) pg MCHC 35.0 (31.0-37.0) g/dL RDW Std Deviation 45.1 (28.0-62.0) fl RDW Coeff of Ivette 13 (11.0-15.0) % Plt Count 158 (150-400) K/uL MPV 10.00 (7.40-12.00) fL Neut % (Auto) 78.0 (48.0-80.0) % Lymph % (Auto) 9.4 L (16.0-40.0) % [place] % (Auto) 11.7 (0.0-15.0) % Eos % (Auto) 0.8 (0.0-7.0) % Baso % (Auto) 0.1 (0.0-1.5) % Neut # (Auto) 13.4 H (1.4-5.7) K/uL Lymph # (Auto) 1.6 (0.6-2.4) K/uL [place] # (Auto) 2.0 H (0.0-0.8) K/uL Eos # (Auto) 0.1 (0.0-0.7) K/uL Baso # (Auto) 0.0 (0.0-0.1) K/uL Nucleated RBC % 0.0 /100WBC Nucleated RBCs # 0 K/uL Sodium 137 (136-148) mmol/L Potassium 3.5 (3.5-5.1) mmol/L Chloride 101 (98-107) mmol/L Carbon Dioxide 28.0 (21.0-32.0) mmol/L BUN 9 (7.0-18.0) mg/dL Creatinine 1.1 (0.8-1.3) mg/dL Est Cr Clr Drug Dosing 66.77 mL/min Estimated GFR (MDRD) > 60.0 ml/min Glucose 116 H (74-106) mg/dL Calcium 8.8 (8.5-10.1) mg/dL Total Bilirubin 1.4 H (0.2-1.0) mg/dL AST 20 (15-37) IU/L ALT 42 (14-63) IU/L Alkaline Phosphatase 63 (46-116) U/L Troponin I < 0.050 (0.000-0.056) ng/mL B-Natriuretic Peptide 59 (<100) PG/ML Total Protein 7.5 (6.4-8.2) g/dL Albumin 4.0 (3.4-5.0) g/dL Globulin 3.5 (2.6-4.0) g/dL Albumin/Globulin Ratio 1.1 (0.9-1.6) Lipase 101 (73-393) U/L Urine Color Urine Appearance Urine pH (5.0-8.0) Ur Specific [place] (1.001-1.035) Urine Protein (NEGATIVE) mg/dL Urine Glucose (UA) (NEGATIVE) mg/dL Urine Ketones (NEGATIVE) mg/dL Urine Occult Blood (NEGATIVE) Urine Nitrite (NEGATIVE) Urine Bilirubin (NEGATIVE) Urine Urobilinogen (<2.0) EU/dL Ur Leukocyte Esterase (NEGATIVE) Urine RBC (0-2/HPF) Urine WBC (0-5/HPF) Ur Epithelial Cells (NONE-FEW) Urine Bacteria (NEGATIVE) 06/04/19 Range/Units 22:25 WBC (4.0-11.0) K/uL RBC (4.50-5.90) M/uL Hgb (13.0-17.0) g/dL Hct (38.0-50.0) % MCV (80.0-98.0) fL MCH (27.0-32.0) pg MCHC (31.0-37.0) g/dL RDW Std Deviation (28.0-62.0) fl RDW Coeff of [place] (11.0-15.0) % Plt Count (150-400) K/uL MPV (7.40-12.00) fL Neut % (Auto) (48.0-80.0) % Lymph % (Auto) (16.0-40.0) % [place] % (Auto) (0.0-15.0) % Eos % (Auto) (0.0-7.0) % Baso % (Auto) (0.0-1.5) % Neut # (Auto) (1.4-5.7) K/uL Lymph # (Auto) (0.6-2.4) K/uL [place] # (Auto) (0.0-0.8) K/uL Eos # (Auto) (0.0-0.7) K/uL Baso # (Auto) (0.0-0.1) K/uL Nucleated RBC % /100WBC Nucleated RBCs # K/uL Sodium (136-148) mmol/L Potassium (3.5-5.1) mmol/L Chloride (98-107) mmol/L Carbon Dioxide (21.0-32.0) mmol/L BUN (7.0-18.0) mg/dL Creatinine (0.8-1.3) mg/dL Est Cr Clr Drug Dosing mL/min Estimated GFR (MDRD) ml/min Glucose (74-106) mg/dL Calcium (8.5-10.1) mg/dL Total Bilirubin (0.2-1.0) mg/dL AST (15-37) IU/L ALT (14-63) IU/L Alkaline Phosphatase (46-116) U/L Troponin I (0.000-0.056) ng/mL B-Natriuretic Peptide (<100) PG/ML Total Protein (6.4-8.2) g/dL Albumin (3.4-5.0) g/dL Globulin (2.6-4.0) g/dL Albumin/Globulin Ratio (0.9-1.6) Lipase (73-393) U/L Urine Color YELLOW Urine Appearance CLEAR Urine pH 7.0 (5.0-8.0) Ur Specific [place] 1.010 (1.001-1.035) Urine Protein NEGATIVE (NEGATIVE) mg/dL Urine Glucose (UA) NEGATIVE (NEGATIVE) mg/dL Urine Ketones NEGATIVE (NEGATIVE) mg/dL Urine Occult Blood TRACE-INTACT H (NEGATIVE) Urine Nitrite NEGATIVE (NEGATIVE) Urine Bilirubin NEGATIVE (NEGATIVE) Urine Urobilinogen 1.0 (<2.0) EU/dL Ur Leukocyte Esterase NEGATIVE (NEGATIVE) Urine RBC 0-2 (0-2/HPF) Urine WBC 0-1 (0-5/HPF) Ur Epithelial Cells RARE (NONE-FEW) Urine Bacteria RARE (NEGATIVE) Result Diagrams: 06/04/19 22:20 06/04/19 22:20 Consult PN Assessment/Plan Procedures: Procedures ASSAY OF FOLIC ACID SERUM (01/23/19) ASSAY OF FREE TESTOSTERONE (01/23/19) ASSAY OF INSULIN (01/23/19) ASSAY OF TOTAL TESTOSTERONE (01/23/19) ASSAY THYROID STIM HORMONE (01/23/19) CARDIOVASCULAR STRESS TEST (01/27/19) COMPLETE CBC W/AUTO DIFF WBC (01/23/19) COMPREHEN METABOLIC PANEL (01/23/19) EMERGENCY DEPT VISIT (03/29/19) EXTRACRANIAL BILAT STUDY (03/17/19) GLYCOSYLATED HEMOGLOBIN TEST (01/23/19) HT MUSCLE IMAGE SPECT MULT (01/27/19) IMMUNIZATION ADMIN (03/29/19) IRON BINDING TEST (01/23/19) LIPID PANEL (11/17/18) METABOLIC PANEL TOTAL CA (11/17/18) ROUTINE VENIPUNCTURE (11/17/18) TDAP VACCINE 7 YRS/> IM (03/29/19) TTE W/DOPPLER COMPLETE (11/20/18) VITAMIN B-12 (01/23/19) Problem List Initiated/Reviewed/Updated: Yes My Orders Last 24 Hours: My Active Orders 06/05/19 21:00 carvediloL [Coreg] 12.5 mg PO BID 06/06/19 09:00 Aspirin 81 mg PO DAILY Finasteride [Finasteride] 5 mg PO DAILY Pravastatin [Pravachol] 80 mg PO DAILY Ramipril [Altace] 10 mg PO DAILY hydroCHLOROthiazide 12.5 mg PO DAILY Plan: 58 yo male admitted following an appendectomy by Dr. Guerra. I would recommend restarting his cardioprotective medications and insuring incentive spirometry use and DVT prophylaxis.
[2019-06-05] MEDS: Docusate Sodium 100 MG Cap PO SCH (15:56)
[2019-06-05] MEDS: Acetaminophen/oxyCODONE 325-10 MG Tab PO PRN ×2 (15:56→22:01)
[2019-06-05] MEDS: Carvedilol 12.5 MG Tab PO SCH (22:00)
[2019-06-06] MEDS: Acetaminophen/oxyCODONE 325-10 MG Tab PO PRN (06:46)
[2019-06-06] MEDS: Carvedilol 12.5 MG Tab PO SCH (08:12)
[2019-06-06] MEDS: Docusate Sodium 100 MG Cap PO SCH (08:12)
[2019-06-06] MEDS: Ondansetron 4 MG/2 ML SDV IVPUSH PRN (08:17)
[2019-06-06] MEDS ORDERED: Aspirin 81 MG Tab.Chew PO SCH (09:00)
[2019-06-06] MEDS ORDERED: Hydrochlorothiazide 12.5 MG Cap PO SCH (09:00)
[2019-06-06] MEDS ORDERED: Pravastatin 40 MG Tab PO SCH (09:00)
[2019-06-06] MEDS ORDERED: Finasteride 5 MG Tab PO SCH (09:00)
--- NOTE | 2019-06-06 13:31 | PCM.DCSUM1 ---
Discharge Summary - Hospital Course Free Text/Narrative:: see admission h/p for details; pt presented to ed w 48 hrs of abd pain; ct > acute appendicitis, surgery was consulted Diagnosis: Stroke: No - Discharge Data Discharge Date: 06/06/19 Discharge Disposition: Home, Self-Care 01 Condition: Fair - Referral to Home Health Primary Care Physician: Charo Li MD - Patient Summary/Data Operative Procedure(s) Performed: lap appy Consults: Consultations 06/05/19 05:57 Consult to Physician [CONS] Routine Hospital Course: pt was taken to surgery s/p lap appendectomy; po pt was put to telemetry for his card hx; hospitalist was consulted for med management; pt did well postop, no complaint; abd soft, wound sites CDI, amb by self, sheri po intake, pt was discharged home w script for pain meds; pt would have phuong removed next wk. - Patient Instructions Diet: Regular Diet as Tolerated Activity: No Lifting Over 10 Pounds, No Strenuous Activities Driving: Do Not Drive Showering/Bathing: May Shower in 3 Days Wound/Incision Care: Keep Operative Site/Wound Site Clean and Dry Notify Provider of: Fever, Drainage, Nausea and/or Vomiting - Discharge Plan Home Medications: Home Meds Aspirin 81 mg PO DAILY 03/29/19 [History] Hydrochlorothiazide [Microzide] 12.5 mg PO DAILY 03/29/19 [History] Ramipril [Altace] 10 mg PO DAILY 03/29/19 [History] carvediloL [Coreg] 12.5 mg PO BID 03/29/19 [History] Finasteride 5 mg PO DAILY 06/04/19 [History] Pravastatin [Pravachol] 80 mg PO DAILY 06/04/19 [History] Multivitamin [One Daily Multivitamin] 1 tab PO DAILY 06/05/19 [History] Omeprazole Magnesium [Prilosec Otc] 20 mg PO DAILY 06/05/19 [History] Ubidecarenone [Ultra Coq10] 06/05/19 [History] Patient Handouts: Docusate Sodium; Senna tablets or capsules, Acetaminophen; Oxycodone tablets, Laparoscopic Appendectomy, Adult, Care After, [id number], Surgical Drain Home Care Referrals: Paco Huston MD [Physician] - 06/10/19 3:30 pm Panda Guerra MD [Physician] - Charo Li MD [Primary Care Provider] - - Discharge Summary/Plan Comment DC Time >30 min.: Yes - Patient Data Vitals - Most Recent: Last Vital Signs Temp 97.8 F 06/06/19 12:45 Pulse 69 06/06/19 12:45 Resp 18 06/06/19 12:45 BP 115/73 06/06/19 12:45 Pulse Ox 91 L 06/06/19 12:45 Weight - Most Recent: 179 lb 3.773 oz I&O - Last 24 hours: Intake & Output 06/05/19 06/06/19 06/06/19 22:59 06:59 14:59 Intake Total 840 1873 Output Total 120 110 Balance 720 1763 Med Orders - Current: Current Medications Aspirin (Aspirin) 81 mg PO DAILY [facility] Last Admin: 06/06/19 08:12 Dose: 81 mg Carvedilol (Coreg) 12.5 mg PO BID [facility] Last Admin: 06/06/19 08:12 Dose: 12.5 mg Docusate Sodium (Colace) 100 mg PO DAILY [facility] Last Admin: 06/06/19 08:12 Dose: 100 mg Finasteride (Proscar) 5 mg PO DAILY [facility] Last Admin: 06/06/19 08:12 Dose: 5 mg Hydrochlorothiazide (Hydrochlorothiazide) 12.5 mg PO DAILY [facility] Last Admin: 06/06/19 08:12 Dose: 12.5 mg Lactated Ringer's (Ringers, Lactated) 1,000 mls @ 75 mls/hr IV ASDIRECTED [facility] Last Admin: 06/05/19 11:41 Dose: 100 mls/hr Morphine Sulfate (Morphine) 3 mg IVPUSH Q6H PRN PRN Reason: Breakthrough Pain Last Admin: 06/05/19 10:18 Dose: 3 mg Ondansetron HCl (Zofran) 4 mg IVPUSH Q8H PRN PRN Reason: Nausea/Vomiting Last Admin: 06/06/19 08:17 Dose: 4 mg Oxycodone/Acetaminophen (Percocet 325-10 Mg) 1 tab PO Q6H PRN PRN Reason: Abdominal Pain Last Admin: 06/06/19 06:46 Dose: 1 tab Pravastatin Sodium (Pravachol) 80 mg PO DAILY [facility] Last Admin: 06/06/19 08:12 Dose: 80 mg Ramipril (Altace) 10 mg PO DAILY [facility] Last Admin: 06/06/19 08:11 Dose: 10 mg Discontinued Medications Albuterol (Proventil Neb Soln) 2.5 mg NEB ONETIME PRN PRN Reason: Wheezing Atropine Sulfate (Atropine 0.1 Mg/Ml) 0.5 mg IVPUSH ASDIRECTED PRN PRN Reason: Hypo-perfusion Atropine Sulfate (Atropine 0.1 Mg/Ml) 1 mg IVPUSH ASDIRECTED PRN PRN Reason: Hypo-Perfusion Cefoxitin Sodium (Mefoxin) Confirm Administered Dose 1 gm .ROUTE .STK-MED ONE Stop: 06/05/19 04:24 Dextrose/Water (Dextrose 50% In Water) 50 ml IVPUSH ASDIRECTED PRN PRN Reason: Hypoglycemia Ephedrine Sulfate (Ephedrine Sulfate) Confirm Administered Dose 50 mg .ROUTE .STK-MED ONE Stop: 06/05/19 04:28 Epinephrine HCl (Epinephrine 1:10,000) 1 mg IVPUSH ASDIRECTED PRN PRN Reason: ACLS Guidelines Etomidate (Amidate) Confirm Administered Dose 40 mg IVPUSH .STK-MED ONE Stop: 06/05/19 03:05 Fentanyl (Sublimaze) Confirm Administered Dose 250 mcg .ROUTE .STK-MED ONE Stop: 06/05/19 03:05 Fentanyl (Sublimaze) 50 - 100 mcg IVPUSH Q5M PRN PRN Reason: Pain Hydromorphone HCl (Dilaudid) Confirm Administered Dose 2 mg .ROUTE .STK-MED ONE Stop: 06/05/19 05:32 Sodium Chloride (Normal Saline) 1,000 mls @ 999 mls/hr IV STAT ONE Stop: 06/04/19 23:11 Last Admin: 06/04/19 22:31 Dose: 999 mls/hr Ceftriaxone Sodium/Dextrose 1 (gm/ Premix) 50 mls @ 100 mls/hr IV ONETIME ONE Stop: 06/05/19 00:41 Last Admin: 06/05/19 00:22 Dose: 100 mls/hr Lactated Ringer's (Ringers, Lactated) 1,000 mls @ 125 mls/hr IV ASDIRECTED [facility] Last Admin: 06/05/19 00:52 Dose: 125 mls/hr Bupivacaine HCl/Epinephrine Bitart (Sensorc Mpf 0.25%-Epi 1:[id number]) Confirm Administered Dose 30 mls @ as directed .ROUTE .STK-MED ONE Stop: 06/05/19 03:31 Sodium Chloride (Normal Saline) Confirm Administered Dose 20 mls @ as directed .ROUTE .STK-MED ONE Stop: 06/05/19 04:24 Iopamidol (Isovue Multipack-370 (76%)) 100 ml IVPUSH ONETIME STA Stop: 06/04/19 23:17 Last Admin: 06/04/19 23:17 Dose: 100 ml Lidocaine (Xylocaine-Mpf 2%) Confirm Administered Dose 5 ml .ROUTE .STK-MED ONE Stop: 06/05/19 03:05 Midazolam HCl (Versed 1 Mg/Ml) Confirm Administered Dose 2 mg .ROUTE .STK-MED ONE Stop: 06/05/19 03:05 Morphine Sulfate (Morphine) 2 mg IVPUSH ONETIME ONE Stop: 06/04/19 22:42 Last Admin: 06/04/19 22:49 Dose: 2 mg Morphine Sulfate (Morphine) 3 mg IVPUSH Q6H PRN PRN Reason: Breakthrough Pain Naloxone HCl (Narcan) 0.1 mg IVPUSH ASDIRECTED PRN PRN Reason: Respiratory Depression Ondansetron HCl (Zofran) 8 mg IVPUSH ONETIME ONE Stop: 06/04/19 22:12 Last Admin: 06/04/19 22:31 Dose: 8 mg Ondansetron HCl (Zofran) Confirm Administered Dose 4 mg .ROUTE .STK-MED ONE Stop: 06/05/19 03:05 Oxycodone/Acetaminophen (Percocet 325-5 Mg) 1 tab PO Q6H PRN PRN Reason: Pain Last Admin: 06/05/19 08:10 Dose: 1 tab Oxycodone/Acetaminophen (Percocet 325-7.5 Mg) 1 tab PO Q6H PRN PRN Reason: Abdominal Pain Rocuronium [place] (Zemuron) Confirm Administered Dose 100 mg .ROUTE .STK-MED ONE Stop: 06/05/19 03:05 Succinylcholine Chloride (Succinylcholine Chloride) Confirm Administered Dose 200 mg .ROUTE .STK-MED ONE Stop: 06/05/19 03:05
== END 2019-06-06 13:30 | disposition home or self-care (01) ==
LOC: MW.ED 22:09 → MW.SDS 06-05 00:40 → MW.MS 06-05 00:41
PROVIDERS: ADMIT Surgery; ATTEND Surgery
DX: K35.80 Unspecified acute appendicitis (principal); K21.9 Gastro-esophageal reflux disease without esophagitis; Z79.82 Long term (current) use of aspirin; Z79.899 Other long term (current) drug therapy; Z87.891 Personal history of nicotine dependence
CPT/HCPCS: 44970; 71045; 74178; 80053; 81001; 83690; 83880; 84484; 85025; 93005; 96374; 96375; 99285; A9270; C1776; J0330; J0694; J0696; J1170; J2001; J2250; J2270; J2405; J3010; J3490; J7040; J7120; Q9967; 00840; 88304

== ENCOUNTER 2019-06-14 09:48 | Emergency (ER) | payer BC ==
--- NOTE | 2019-06-14 10:46 | EDM.PDOC ---
ED HPI GENERAL MEDICAL PROBLEM - General Chief Complaint: Lower Extremity Injury/Pain Stated Complaint: CAN NOT BEND RT KNEE Time Seen by Provider: 06/14/19 10:03 Source of Information: Reports: Patient History Limitations: Reports: No Limitations - History of Present Illness INITIAL COMMENTS - FREE TEXT/NARRATIVE: HISTORY AND PHYSICAL: History of present illness: Patient is a 58-year-old male who presents to the emergency room today with complaints of right knee discomfort and soft tissue swelling. He states last week he had an appendectomy and had been feeling well. Over the past 24 hours he noticed that his right knee is "locked" stating he is unable to bend. He is concerned that this may be a postoperative complication as he does not recall any injury, trauma or falls. He does have some pain with palpation over the medial patella. He is able to bear weight, has not had any areas of redness, calf pain or foot drop. Denies any numbness or tingling of the affected extremity. Review of systems: As per history of present illness and below otherwise all systems reviewed and negative. Past medical history: As per history of present illness and as reviewed below otherwise noncontributory. Surgical history: As per history of present illness and as reviewed below otherwise noncontributory. Social history: See social history for further information Family history: As per history of present illness and as reviewed below otherwise noncontributory. Physical exam: General: Well-developed and well-nourished 58-year-old male. Alert and oriented. Nontoxic appearing and in no acute distress. HEENT: Atraumatic, normocephalic, pupils equal and reactive bilaterally, negative for conjunctival pallor or scleral icterus, mucous membranes moist, trachea midline. No drooling or trismus noted. No meningeal signs. No hot potato voice noted. Lungs: Clear to auscultation, breath sounds equal bilaterally, chest nontender. Heart: S1S2, regular rate and rhythm without overt murmur Abdomen: Soft, nondistended, nontender. Negative for masses or hepatosplenomegaly. Negative for costovertebral tenderness. Pelvis: Stable nontender. Skin: Intact, warm, dry. No lesions or rashes noted. Extremities: Atraumatic, moves all extremities per self without difficulty or deficits, negative for cords or calf pain. Able to manually bend the knee with moderate force, some resistance noted unsure if this is from the patient. Pedal pulse. Positive CMS Neurovascular unremarkable. C-spine/Back: No pinpoint vertebral tenderness upon palpation. No crepitus, step -offs or obvious deformities. Patient is ambulatory into the emergency room without difficulty or deficit. Able to rock back on heels and walk on toes. Denies any urinary or fecal incontinence. Denies any numbness, tingling or saddle paresthesia. Neuro: Awake, alert, oriented. Cranial nerves II through XII unremarkable. Cerebellum unremarkable. Motor and sensory unremarkable throughout. Exam nonfocal. Notes: Diagnostics are unremarkable. This information was shared with the patient. I did offer him a knee immobilizer and crutches which he declines. Encouraged him to follow-up with the orthopedic provider, call Saturday. Supportive care measures were reviewed and discussed. Voices understanding and is agreeable to plan of care. Denies any further questions or concerns at this time. Diagnostics: CBC, CMP, Lactic, Venous, Xray Therapeutics: Declines Prescription: Declines Impression: Right knee pain Plan: 1. Rest, ice, elevate the affected extremity. 2. Tylenol and/or Ibuprofen as needed for pain management. 3. Follow up with the Orthopedic provider as we discussed. Return to the ED as needed and as discussed. Definitive disposition and diagnosis as appropriate pending reevaluation and review of above. - Related Data Allergies Allergy/AdvReac Type Severity Reaction Status Date / Time No Known Allergies Allergy Verified 06/05/19 03:12 Home Meds: Home Meds Aspirin 81 mg PO DAILY 03/29/19 [History] Hydrochlorothiazide [Microzide] 12.5 mg PO DAILY 03/29/19 [History] Ramipril [Altace] 10 mg PO DAILY 03/29/19 [History] carvediloL [Coreg] 12.5 mg PO BID 03/29/19 [History] Finasteride 5 mg PO DAILY 06/04/19 [History] Pravastatin [Pravachol] 80 mg PO DAILY 06/04/19 [History] Multivitamin [One Daily Multivitamin] 1 tab PO DAILY 06/05/19 [History] Omeprazole Magnesium [Prilosec Otc] 20 mg PO DAILY 06/05/19 [History] Ubidecarenone [Ultra Coq10] 06/05/19 [History] Past Medical History HEENT History: Reports: None Cardiovascular History: Reports: Bypass, Cardiomyopathy, Heart Failure, Hypertension Other Cardiovascular History: Patient states he has heart disease Respiratory History: Reports: None Gastrointestinal History: Reports: GERD, Hiatal Hernia Genitourinary History: Reports: None Other Genitourinary History: Patient states he has "prostate issues." Musculoskeletal History: Reports: None Neurological History: Reports: None Psychiatric History: Reports: None Endocrine/Metabolic History: Reports: None Insulin Pump Model and Blow Mold Technician: None Hematologic History: Reports: None Immunologic History: Reports: None Oncologic (Cancer) History: Reports: None Dermatologic History: Reports: None - Infectious Disease History Infectious Disease History: Reports: Chicken Pox - Past Surgical History Head Surgeries/Procedures: Reports: None Cardiovascular Surgical History: Reports: Coronary Artery Bypass Other Cardiovascular Surgeries/Procedures: Angio 2009 without stent placement Social & Family History - Family History Family Medical History: Noncontributory - Tobacco Use Smoking Status *Q: Never Smoker - Caffeine Use Caffeine Use: Reports: None - Recreational Drug Use Recreational Drug Use: No Review of Systems - Review of Systems Review Of Systems: Comprehensive ROS is negative, except as noted in HPI. ED EXAM, GENERAL - Physical Exam Exam: See Below (See dictation) Course - Vital Signs Last Recorded V/S: Last Vital Signs Temp 97 F 06/14/19 10:02 Pulse 75 06/14/19 10:02 Resp 18 06/14/19 10:02 BP 120/84 06/14/19 10:02 Pulse Ox 97 06/14/19 10:02 - Orders/Labs/Meds Orders: Active Orders 24 hr Category Date Time Status DME for Discharge [COMM] Stat Oth 06/14/19 11:18 Ordered Labs: Laboratory Tests 06/14/19 06/14/19 06/14/19 Range/Units 10:56 10:56 10:56 WBC 9.52 (4.0-11.0) K/uL RBC 4.51 (4.50-5.90) M/uL Hgb 14.5 (13.0-17.0) g/dL Hct 43.6 (38.0-50.0) % MCV 96.7 (80.0-98.0) fL MCH 32.2 H (27.0-32.0) pg MCHC 33.3 (31.0-37.0) g/dL RDW Std Deviation 46.9 (28.0-62.0) fl RDW Coeff of Ivette 13 (11.0-15.0) % Plt Count 241 (150-400) K/uL MPV 9.20 (7.40-12.00) fL Neut % (Auto) 64.0 (48.0-80.0) % Lymph % (Auto) 20.4 (16.0-40.0) % Ponce % (Auto) 11.9 (0.0-15.0) % Eos % (Auto) 3.2 (0.0-7.0) % Baso % (Auto) 0.5 (0.0-1.5) % Neut # (Auto) 6.1 H (1.4-5.7) K/uL Lymph # (Auto) 1.9 (0.6-2.4) K/uL Ponce # (Auto) 1.1 H (0.0-0.8) K/uL Eos # (Auto) 0.3 (0.0-0.7) K/uL Baso # (Auto) 0.1 (0.0-0.1) K/uL Nucleated RBC % 0.0 /100WBC Nucleated RBCs # 0 K/uL Lactate 1.2 (0.20-2.00) mmol/L Sodium 141 (136-148) mmol/L Potassium 4.6 (3.5-5.1) mmol/L Chloride 105 (98-107) mmol/L Carbon Dioxide 31.9 (21.0-32.0) mmol/L BUN 9 (7.0-18.0) mg/dL Creatinine 1.1 (0.8-1.3) mg/dL Est Cr Clr Drug Dosing 66.77 mL/min Estimated GFR (MDRD) > 60.0 ml/min Glucose 97 (74-106) mg/dL Calcium 8.7 (8.5-10.1) mg/dL Total Bilirubin 0.7 (0.2-1.0) mg/dL AST 22 (15-37) IU/L ALT 51 (14-63) IU/L Alkaline Phosphatase 68 (46-116) U/L Total Protein 7.5 (6.4-8.2) g/dL Albumin 3.7 (3.4-5.0) g/dL Globulin 3.8 (2.6-4.0) g/dL Albumin/Globulin Ratio 1.0 (0.9-1.6) Departure - Departure Time of Disposition: 11:16 Disposition: Home, Self-Care 01 Clinical Impression: Right knee pain Qualifiers: Chronicity: acute Qualified Code(s): M25.561 - Pain in right knee - Discharge Information Instructions: Knee Pain, Adult, [id number] Referrals: Charo Li MD [Primary Care Provider] - Forms: ED Department Discharge Additional Instructions: The following information is given to patients seen in the emergency department who are being discharged to home. This information is to outline your options for follow-up care. We provide all patients seen in our emergency department with a follow-up referral. The need for follow-up, as well as the timing and circumstances, are variable depending upon the specifics of your emergency department visit. If you don't have a primary care physician on staff, we will provide you with a referral. We always advise you to contact your personal physician following an emergency department visit to inform them of the circumstance of the visit and for follow-up with them and/or the need for any referrals to a consulting specialist. The emergency department will also refer you to a specialist when appropriate. This referral assures that you have the opportunity for follow-up care with a specialist. All of these measure are taken in an effort to provide you with optimal care, which includes your follow-up. Under all circumstances we always encourage you to contact your private physician who remains a resource for coordinating your care. When calling for follow-up care, please make the office aware that this follow-up is from your recent emergency room visit. If for any reason you are refused follow-up, please contact the [facility] Emergency Department at and asked to speak to the emergency department charge nurse. [facility] [address] [place] [id number] [facility] [address] [place] [address] [facility] - [facility] Professional Building [address] [place] [address], [address] [place] [address] 1. Rest, ice, elevate the affected extremity. 2. Tylenol and/or Ibuprofen as needed for pain management. 3. Follow up with the Orthopedic provider as we discussed. Return to the ED as needed and as discussed. - My Orders Last 24 Hours: My Active Orders 06/14/19 11:18 DME for Discharge [COMM] Stat - Assessment/Plan Last 24 Hours: My Active Orders 06/14/19 11:18 DME for Discharge [COMM] Stat
--- NOTE | 2019-06-14 11:08 | US ---
CLINICAL HISTORY: Right knee pain TECHNIQUE: A compression venous ultrasound exam was performed of the right lower extremity using rodriguez-scale imaging, color Doppler and spectral Doppler analysis. FINDINGS: Sonographic imaging of the right lower extremity demonstrates normal compressibility and color Doppler venous blood flow within the common femoral vein, deep femoral vein, and the proximal greater saphenous vein. Within the thigh, the femoral vein is patent and compressible. At a lower level, the popliteal and posterior tibial veins also show normal compressibility and color Doppler venous blood flow. Slightly slow flow within the popliteal vein. IMPRESSION: No evidence of deep vein thrombosis within the right lower extremity. Dictated by Adela Villalobos MD @ Jun 14 2019 11:05AM Signed by Dr. Adela Villalobos @ Jun 14 2019 11:07AM
--- NOTE | 2019-06-14 11:08 | CR ---
INDICATION: Knee pain. FINDINGS: Three views of the right knee show no evidence of acute fracture or dislocation. No other bony or soft tissue abnormalities identified. Dictated by Trae Villalobos MD @ 06/14/2019 11:05:51 AM Dictated by: Trae Villalobos MD @ 06/14/2019 11:06:00 (Electronically Signed)
[2019-06-14 11:24] LABS: BLOOD UREA NITROGEN,BUN 9 mg/dL (7.0-18.0); CARBON DIOXIDE,CO2 31.9 mmol/L (21.0-32.0); CHLORIDE,CL 105 mmol/L (98-107); GLUCOSE RANDOM 97 mg/dL (74-106); POTASSIUM,K 4.6 mmol/L (3.5-5.1); SODIUM,NA 141 mmol/L (136-148)
== END 2019-06-14 11:37 | disposition home or self-care (01) ==
LOC: MW.ED 09:48
DX: M25.561 Pain in right knee (principal); I11.0 Hypertensive heart disease with heart failure; I50.9 Heart failure, unspecified; K21.9 Gastro-esophageal reflux disease without esophagitis; Z79.82 Long term (current) use of aspirin; Z79.899 Other long term (current) drug therapy
CPT/HCPCS: 36415; 73562-26-RT; 73562-RT; 80053; 83605; 85025; 93971-26-RT; 93971-RT; 99284-25

== ENCOUNTER 2020-06-17 06:32 | Day surgery (SDC) | payer BC ==
[~2020-06-17 06:32] MED LIST: Lactated Ringers 1,000 ML IV SCH
[2020-06-17] MEDS ORDERED: Midazolam 1 MG/ML 2 ML SDV ONE (07:14)
[2020-06-17] MEDS ORDERED: Propofol 200 MG/20 ML SDV ONE (07:14)
[2020-06-17] MEDS ORDERED: Lidocaine 2% 5 ML SDV ONE (07:14)
[2020-06-17] MEDS ORDERED: Glycopyrrolate 0.2 MG/ML SDV ONE (07:14)
--- NOTE | 2020-06-17 07:36 | PCM.PREANE ---
Preanesthetic Assessment - Anesthesia/Transfusion/Family Hx Anesthesia History: Prior Anesthesia Without Reaction Family History of Anesthesia Reaction: No Transfusion History: No Prior Transfusion(s) - Review of Systems General: No Symptoms Pulmonary: No Symptoms Cardiovascular: No Symptoms Gastrointestinal: No Symptoms Neurological: No Symptoms Other: Reports: None - Physical Assessment NPO Status Date: 06/16/20 Vital Signs: Last Vital Signs Temp 97.9 F 06/17/20 07:04 Pulse 70 06/17/20 07:04 Resp 16 06/17/20 07:04 BP 114/78 06/17/20 07:04 Pulse Ox 99 06/17/20 07:04 Height: 5 ft 7 in Weight: 79.379 kg ASA Class: 2 Airway Class: Mallampati = 2 Dentition: Reports: Normal Dentition ROM/Head Extension: Full Lungs: Clear to Auscultation, Normal Respiratory Effort Cardiovascular: Regular Rate, Regular Rhythm - Allergies Allergies/Adverse Reactions: Allergies Allergy/AdvReac Type Severity Reaction Status Date / Time No Known Allergies Allergy Verified 06/13/20 08:36 - Blood Blood Available: No - Anesthesia Plan Pre-Op Medication Ordered: None - Acknowledgements Anesthesia Type Planned: General Anesthesia (tiva) Pt an Appropriate Candidate for the Planned Anesthesia: Yes Alternatives and Risks of Anesthesia Discussed w Pt/Guardian: Yes Pt/Guardian Understands and Agrees with Anesthesia Plan: Yes Additional Comments: PMH: cad s/p cabg in 2009, ischemic cardiomyopathy with EF in 2019 of 40-45% PreAnesthesia Questionnaire HEENT History: Reports: None Other HEENT History: wears glasses when drives Cardiovascular History: Reports: Bypass, Cardiomyopathy, Heart Failure, Hypertension Other Cardiovascular History: Patient states he has heart disease Respiratory History: Reports: None Gastrointestinal History: Reports: GERD, Hiatal Hernia Genitourinary History: Reports: None Other Genitourinary History: Patient states he has "prostate issues." Musculoskeletal History: Reports: None Neurological History: Reports: None Psychiatric History: Reports: None Endocrine/Metabolic History: Reports: None Hematologic History: Reports: None Immunologic History: Reports: None Oncologic (Cancer) History: Reports: None Dermatologic History: Reports: None - Infectious Disease History Infectious Disease History: Reports: Chicken Pox - Past Surgical History Head Surgeries/Procedures: Reports: None HEENT Surgical History: Reports: Adenoidectomy, Tonsillectomy Cardiovascular Surgical History: Reports: Coronary Artery Bypass Other Cardiovascular Surgeries/Procedures: Angio 2009 without stent placement GI Surgical History: Reports: Appendectomy, Colonoscopy Female Surgical History: Reports: None - SUBSTANCE USE Tobacco Use Status *Q: Former Tobacco User - HOME MEDS Home Medications: Home Meds Aspirin 81 mg PO DAILY 03/29/19 [History] carvediloL [Coreg] 12.5 mg PO BID 03/29/19 [History] hydroCHLOROthiazide [Microzide] 12.5 mg PO DAILY 03/29/19 [History] ramipriL [Altace] 10 mg PO DAILY 03/29/19 [History] Finasteride 5 mg PO DAILY 06/04/19 [History] Pravastatin [Pravachol] 80 mg PO DAILY 06/04/19 [History] Ubidecarenone [Ultra Coq10] 1 tab PO DAILY 06/05/19 [History] - CURRENT (IN HOUSE) MEDS Current Meds: Current Medications Lactated Ringer's (Ringers, Lactated) 1,000 mls @ 125 mls/hr IV ASDIRECTED [facility] Last Admin: 06/17/20 06:50 Dose: 125 mls/hr Documented by: Discontinued Medications Glycopyrrolate (Robinul) Confirm Administered Dose 0.2 mg .ROUTE .STK-MED ONE Stop: 06/17/20 07:15 Lidocaine (Xylocaine-Mpf 2%) Confirm Administered Dose 5 ml .ROUTE .STK-MED ONE Stop: 06/17/20 07:15 Midazolam HCl (Versed 1 Mg/Ml) Confirm Administered Dose 2 mg .ROUTE .STK-MED ONE Stop: 06/17/20 07:15 Propofol (Diprivan 20 Ml) Confirm Administered Dose 600 mg .ROUTE .STK-MED ONE Stop: 06/17/20 07:15
--- NOTE | 2020-06-17 08:34 | PCM.OPNOTE ---
- General Post-Op/Procedure Note Date of Surgery/Procedure: 06/17/20 Operative Procedure(s): egd w bx. colonoscopy w snare Findings: see [id number] Pre Op Diagnosis: polyp hx and gerd Post-Op Diagnosis: Same Anesthesia Technique: Moderate Sedation Primary Surgeon: Panda Guerra Pathology: egd bx colon polyp at 80cm when withdrawal, size about 5 mm sessile Complications: None Condition: Good
--- NOTE | 2020-06-17 08:54 | PCM.POSTAN ---
POST ANESTHESIA ASSESSMENT - MENTAL STATUS Mental Status: Alert, Oriented - VITAL SIGNS Vital Signs: Last Vital Signs Temp 97.9 F 06/17/20 07:04 Pulse 79 06/17/20 08:40 Resp 15 06/17/20 08:40 BP 97/67 06/17/20 08:40 Pulse Ox 95 06/17/20 08:40 - RESPIRATORY Respiratory Status: Respiratory Rate WNL, Airway Patent, O2 Saturation Stable - CARDIOVASCULAR CV Status: Pulse Rate WNL, Blood Pressure Stable - GASTROINTESTINAL GI Status: No Symptoms - POST OP HYDRATION Hydration Status: Adequate & Stable
--- NOTE | 2020-06-17 08:54 | PCM48HPAN ---
Post Anesthesia Note - EVALUATION WITHIN 48HRS OF ANESTHETIC Vital Signs in Normal Range: Yes Patient Participated in Evaluation: Yes Respiratory Function Stable: Yes Airway Patent: Yes Cardiovascular Function Stable: Yes Hydration Status Stable: Yes Pain Control Satisfactory: Yes Nausea and Vomiting Control Satisfactory: Yes Mental Status Recovered: Yes Vital Signs: Last Vital Signs Temp 97.9 F 06/17/20 07:04 Pulse 79 06/17/20 08:40 Resp 15 06/17/20 08:40 BP 97/67 06/17/20 08:40 Pulse Ox 95 06/17/20 08:40
--- NOTE | 2020-06-17 11:32 | OR ---
SURGEON: Panda Guerra MD DATE OF PROCEDURE: 06/17/2020 PREOPERATIVE DIAGNOSES: History of polyp and gastroesophageal reflux disease. POSTOPERATIVE DIAGNOSES: Esophagogastroduodenoscopy diagnosis is esophagitis, colonoscopy diagnosis is colon polyp. PROCEDURES PERFORMED: Esophagogastroduodenoscopy with biopsy and colonoscopy with snare. DESCRIPTION OF PROCEDURE: EGD: The patient was taken to the endoscopy room, and with the RADIOLOGY RN, Diprivan was administered. A well-lubricated EGD scope was gently inserted through the oropharynx, down the esophagus, passing through the gastroesophageal junction, into the stomach. The mucosa was examined upon the passage. Any etiology will be noted. Once in the stomach, we continued to advance to the distal antrum, passed through the pylorus into the second portion of the duodenum. Again, the mucosa was examined for any abnormality and etiology. The scope was then retrieved back to the stomach and then retroflexed to look at the fundus of the stomach. If a biopsy was indicated, we will biopsy the antrum, body, and gastroesophageal junction. The air will be sucked out while the scope is retrieved to reduce the patient's discomfort. The patient tolerated the procedure well. There were no intraoperative complications. Dr. Guerra was present through the whole procedure. Prior to surgery, a time-out had been called, the patient identified, procedure identified and antibiotic administered. The patient was taken to the endoscopy room. A time out was called, patient identified, and procedure identified. Diprivan was then administrated. Patient went from awake to sleep, hearing doctor talking or door closing is normal. Perineum inspection and digital examination were then performed. A well- lubricated colonoscope was gently inserted through the rectum, advanced past the rectosigmoid junction, the descending colon, splenic flexure, transverse colon, hepatic flexure, ascending colon, arrived to the cecum. Cecum was identified as dictated in the finding. Then the scope was carefully withdrawn while attention was paid to the mucosal surface for any abnormality. Air will be sucked out during the scope withdrawal. At the rectum, retroflexed to examine any rectal diseases, fistula or hemorrhoids. During mucosal examination, abnormality or polyp encountered. Using snare equipment, the abnormality or the polyp was then snared off using electrocautery. The patient tolerated procedure well. There were no intraoperative complications, and Dr. Guerra was present throughout the whole procedure. FINDINGS: EGD findings: 1. The patient is easily sedated with RADIOLOGY RN and Diprivan, the patient is soundly snoring. 2. Oropharynx and proximal esophagus are free of disease. No stricture, inflammation, or varicosity. Distal GE junction at 40 shows flame-like salmon-colored change, consistent with moderate acid reflux and in some area looked like to have esophagitis. Madonna ulcer or bleeding is not observed. Stomach rugae are normal in appearance. Antrum slightly inflamed and with some petechiae, erythema. Again, madonna ulcer or bleeding is not observed. Duodenum is grossly normal. Retroflexed look at the fundus of the stomach, there is no hiatal hernia. Biopsy done at antrum and GE junction at 40 and sucked out the gas while scope pulling out. During the whole study, there is no bile, no food particle, and no madonna blood or madonna ulcer observed. Colonoscopy findings: 1. The patient is easily sedated with RADIOLOGY RN and Diprivan, the patient is soundly snoring. 2. Bowel prep is average to above average. Some liquid stool, no semi-formed stool, no stool ball. 3. Colon is rather straightforward. Cecum indicated by ileocecal fold, one-to- one indentation, appendiceal orifice. ScopeGuide is pointing south. Mucosa examined upon scope pulling out with some irrigation, and the patient does not have diverticulosis. The patient has a small polyp, about 5 mm, at distance 80 while scope coming out. Other than that, there is no other growth, inflammation, stricture, AV malformation, bleeding, none of those. No additional polyp, just one we snared and captured. The patient has internal hemorrhoids and external hemorrhoids, mild. The patient will benefit from repeat colonoscopy, depends on the polyp pathology. We will also put the patient on higher dose of PPI as the patient is taking 20 mg now. With the patient's esophagitis, up his dose to 40 for 2 months, and probably will benefit from repeat EGD in 6 months. MARY / ASHLIE /[id number]
== END 2020-06-17 09:10 | disposition home or self-care (01) ==
LOC: MW.SDS 06:32
PROVIDERS: ATTEND Surgery
DX: Z12.11 Encounter for screening for malignant neoplasm of colon (principal); D12.6 Benign neoplasm of colon, unspecified; K29.50 Unspecified chronic gastritis without bleeding; E78.5 Hyperlipidemia, unspecified; I11.0 Hypertensive heart disease with heart failure; I50.20 Unspecified systolic (congestive) heart failure; K44.9 Diaphragmatic hernia without obstruction or gangrene; I25.10 Atherosclerotic heart disease of native coronary artery without angina pectoris; I42.9 Cardiomyopathy, unspecified; K21.00 Gastro-esophageal reflux disease with esophagitis, without bleeding; K64.4 Residual hemorrhoidal skin tags; K64.8 Other hemorrhoids; Z79.82 Long term (current) use of aspirin; Z79.899 Other long term (current) drug therapy; Z87.891 Personal history of nicotine dependence
CPT/HCPCS: 43239; 45385; J2001; J2250; J2704; J3490; J7120; 88305; 88312